=== PATIENT | male | born 1980 | race Hispanic/Latino ===

== ENCOUNTER 2017-08-29 23:21 | Emergency (ER) | payer SELFPAY ==
[~2017-08-29] VITALS: Ht 170.2 cm; Wt 88.4 kg
[2017-08-29 23:59] VITALS: BP 130/86
== END 2017-08-30 00:03 | disposition home or self-care (01) | DRG 607 ==
LOC: ED 23:21
DX: L72.9 Follicular cyst of the skin and subcutaneous tissue, unspecified (principal)